=== PATIENT | male | born 1940 | race Caucasian/White ===

== ENCOUNTER 2020-02-22 05:22 | Emergency (ER) | payer MEDICARE ==
[2020-02-22 06:09] LABS: BASOPHILS % (AUTO) 0.4 % (0.0-5.0); HEMATOCRIT 42.9 % (42-54); LYMPHOCYTES % (AUTO) 22.4 % (21.0-51.0); MEAN CORPUSCULAR HEMOGLOBIN 30.1 pg (27.0-33.0); MEAN CORPUSCULAR HGB CONC 32.4 g/dL (32.0-36.0); MEAN CORPUSCULAR VOLUME 92.9 fL (79-99); MONOCYTES % (AUTO) 11.1 % (3.0-13.0); PLATELET COUNT (AUTO) 296 K/uL (130-400); RED BLOOD CELL COUNT(AUTO) 4.62 MIL/uL (4.50-6.20); RED CELL DISTRIBUTION WIDTH 15.5 % (11.0-15.5); WHITE BLOOD COUNT (AUTO) 8.3 K/uL (4.8-10.8)
[2020-02-22 06:25] LABS: INR 1.08 (0.85-1.15); PROTHROMBIN TIME 11.5 SEC (9.6-11.6)
[2020-02-22] MEDS ORDERED: IOHEXOL-350 75 ML VIAL IV ONE (06:25)
[2020-02-22 06:26] LABS: PARTIAL THROMBOPLASTIN TIME 26.1 SEC (26.3-35.5)
[2020-02-22 06:46] LABS: B-TYPE NATRIURETIC PEPTIDE 39 pg/mL (0-100)
[2020-02-22 07:15] LABS: ALBUMIN 3.5 g/dL (3.5-5.0); BILIRUBIN,TOTAL 0.6 mg/dL (0.2-1.0); CREATININE 1.4 mg/dL (0.5-1.5); POTASSIUM 3.6 mmol/L (3.5-5.1); TOTAL PROTEIN, SERUM 6.5 g/dL (6.0-8.3)
[2020-02-22] MEDS ORDERED: MORPHINE SULFATE 4 MG/1ML SYG ONE (09:09)
[2020-02-22] MEDS ORDERED: IPRATROPIUM/ALBUTEROL SULFATE 3 ML SOLUTION IH ONE (09:21)
[2020-02-22 10:03] LABS: APPEARANCE,URINE Clear (CLEAR); BILIRUBIN,URINE Negative (NEGATIVE); COLOR,URINE Yellow (YELLOW); GLUCOSE, URINE (UA) Negative (NEGATIVE); KETONES,URINE Negative (NEGATIVE); LEUKOCYTE ESTERASE ,URINE Negative (NEGATIVE); NITRATE,URINE Negative (NEGATIVE); OCCULT BLOOD,URINE Negative (NEGATIVE); PROTEIN,URINE Negative (NEGATIVE)
== END 2020-02-22 10:15 | disposition home or self-care (01) ==
LOC: EDH 05:22
DX: M54.6 Pain in thoracic spine (principal); J44.9 Chronic obstructive pulmonary disease, unspecified; M79.89 Other specified soft tissue disorders; Z86.711 Personal history of pulmonary embolism; Z85.46 Personal history of malignant neoplasm of prostate; Z98.890 Other specified postprocedural states
CPT/HCPCS: 36415; 71275; 80053; 81003; 83880; 84145; 84484; 85025; 85610; 85730; 93005; 94640; 96374; 99285; J2270; Q9967

== ENCOUNTER 2021-02-19 08:09 | Emergency (ER) | payer MEDICARE, OTHER ==
[~2021-02-19] VITALS: Ht 172.7 cm; Wt 90.7 kg
[2021-02-19] MEDS ORDERED: KETOROLAC 30MG VIAL (30MG/ML) IM SCH (09:00)
[2021-02-19] MEDS ORDERED: HYDROCODONE/ACETAMINOPHEN 10/325 MG TAB PO SCH (09:00)
[2021-02-19] MEDS ORDERED: ACET1TAB25 PO (09:44)
[2021-02-19] MEDS ORDERED: META800T72 PO (09:44)
[2021-02-19 09:57] VITALS: BP 134/90
== END 2021-02-19 09:40 | disposition home or self-care (01) ==
LOC: EDH 08:09
DX: M54.50 Low back pain, unspecified (principal); G89.29 Other chronic pain; E78.00 Pure hypercholesterolemia, unspecified; I10 Essential (primary) hypertension; J44.9 Chronic obstructive pulmonary disease, unspecified; M19.90 Unspecified osteoarthritis, unspecified site; Z79.1 Long term (current) use of non-steroidal anti-inflammatories (NSAID)
CPT/HCPCS: 96372; 99283; J1885